=== PATIENT | male | born 1965 | race Hispanic/Latino ===

== ENCOUNTER → 2018-06-25 | Day surgery (SDC) | payer BC ==
[~2018-06-25] MED LIST: AMITIZA24 MCG PO; FENTANYL CITRATE/PF 100MCG/2 ML INJ ONE; GLUCAGON FOR INJ 1 MG VIAL ONE; HYOSCYAMINE SULFATE 0.5 MG/ML INJ ONE; LIPOFEN150 MG PO; MIDAZOLAM HCL 5MG/ML 2ML VIAL ONE; PROPOFOL IV EMULSION 10 MG/ML 50 ML VIAL ONE
[2018-06-25 16:19] VITALS: BP 109/71
--- NOTE | 2018-06-25 18:10 | Operative Report ---
DATE OF PROCEDURE: June 25, 2018 REFERRING PHYSICIAN: Dr. Srinivas Hatch. PROCEDURES PERFORMED: Esophagogastroduodenoscopy with biopsies and a colonoscopy with polypectomy. INDICATIONS FOR ESOPHAGOGASTRODUODENOSCOPY: History of heartburn, indigestion. INDICATIONS FOR COLONOSCOPY: Surveillance colonoscopy, personal history of colon polyps. MEDICATION: Patient was done under MAC. Please see anesthesiologist's note. PROCEDURE: With patient in the left lateral decubitus position, flexible fiberoptic Olympus gastroscope was introduced into the esophagus under direct visualization without any difficulty. There were some erosions noted in distal esophagus. A minute nodule was noted at the GE junction and was biopsied. The scope was then advanced with ease into the stomach. Mucosa overlying the antrum and the body revealed some patchy erythema and low-grade to moderate edema and biopsies were obtained and sent to stain for H. pylori. Pylorus was of normal contour and shape. It was intubated with ease and the scope was advanced all the way to the 2nd portion of the duodenum. There was a prominent fold noted in the proximal 2nd portion that was biopsied. Mucosa overlying the duodenal bulb appeared to be within normal limits. The scope was then withdrawn back into the stomach and retroflexed. Mucosa overlying the fundus appeared to be within normal limits. A minute nodule was noted in the cardia that was biopsied. The scope was then straightened out. It was subsequently withdrawn. Patient tolerated the procedure well. IMPRESSION: 1. Distal erosive esophagitis. 2. Nodule GE junction, biopsied. 3. Nodule cardia, biopsied. 4. Gastritis, biopsied. Biopsy sent to stain for H. pylori. 5. Prominent fold proximal 2nd portion, biopsied. PLAN: Follow up histology. Protonix 40 mg 1 p.o. q.a.m. a.c. PROCEDURE: The patient was then turned around and after adequate lubrication of the anal canal a flexible fiberoptic Olympus colonoscope was inserted into the rectum with ease and advanced all the way to the cecum. Two polyps were snared from the cecum. Two polyps were snared from the ascending colon. One polypectomy site was hemoclipped. Two polyps were hot biopsied and 1 polyp was snared from the transverse colon. Three polyps were snared from the descending colon and 1 polyp was hot biopsied from the rectum. Scope was then retroflexed into the distal rectum and small internal was were noted, none of which were actively bleeding. The scope was then straightened out. Scope was subsequently withdrawn. Patient tolerated the procedure well. IMPRESSION 1. Cecal polyps times 2, snared. 2. Ascending colon polyps times 2, snared, 1 polypectomy site hemoclipped. 3. Transverse colon polyps times 3, 2 hot biopsied and 1 was snared. 4. Descending colon polyps times 3, snared. 5. Rectal polyp times 1, hot biopsied. 6. Internal hemorrhoids, none actively bleeding. PLAN: Follow up histology. Initiate high-fiber, low-fat diet. Initiate high-fiber supplement. The patient will need a followup colonoscopy in 2 years. Job#: [id number] cc:SRINIVAS HATCH MD
== END | disposition home or self-care (01) ==
LOC: OR 09:31
PROVIDERS: ATTEND Internal Medicine Gastroenterology
DX: Z12.11 Encounter for screening for malignant neoplasm of colon (principal); D12.0 Benign neoplasm of cecum; D12.2 Benign neoplasm of ascending colon; D12.3 Benign neoplasm of transverse colon; D12.4 Benign neoplasm of descending colon; D12.8 Benign neoplasm of rectum; K29.70 Gastritis, unspecified, without bleeding; K22.10 Ulcer of esophagus without bleeding; K22.8 Other specified diseases of esophagus; K31.89 Other diseases of stomach and duodenum; K58.9 Irritable bowel syndrome, unspecified; K59.00 Constipation, unspecified; K64.8 Other hemorrhoids; R03.0 Elevated blood-pressure reading, without diagnosis of hypertension; Z01.810 Encounter for preprocedural cardiovascular examination; Z68.36 Body mass index [BMI] 36.0-36.9, adult; Z80.0 Family history of malignant neoplasm of digestive organs
CPT/HCPCS: 43239; 45384; 45385; 93005; J1610; J1980; J2250; 45378

== ENCOUNTER 2024-02-03 09:33 | Inpatient (IN) | payer BC ==
[2024-02-03] VITALS (14 sets, daily range): BP systolic 101–171; BP diastolic 57–93; PULSE 73–104; RESP 20–36; TEMP 98.6–100.4; O2SAT 92–100
[~2024-02-03] VITALS: Ht 170.2 cm; Wt 111.1 kg
[~2024-02-03 09:33] MED LIST changes: -FENTANYL CITRATE/PF 100MCG/2 ML INJ ONE; -GLUCAGON FOR INJ 1 MG VIAL ONE; -HYOSCYAMINE SULFATE 0.5 MG/ML INJ ONE; +LINZESS290 MCG PO; +LISINOPRIL10 MG PO; -MIDAZOLAM HCL 5MG/ML 2ML VIAL ONE; -PROPOFOL IV EMULSION 10 MG/ML 50 ML VIAL ONE; +TRICOR145 MG PO; +ZYRTEC10 M3 PO; +ZYRTEC10 MG PO
[2024-02-03] MEDS ORDERED: IBUPROFEN 400 MG TAB ONE (10:41)
[2024-02-03] MEDS ORDERED: ACETAMINOPHEN 325 MG TAB ONE (10:41)
[2024-02-03 10:42] LABS: INR 1.08; PROTHROMBIN TIME 14.8 seconds (11.9-14.5)
[2024-02-03] MEDS ORDERED: SODIUM CHLORIDE 0.9% 1000ML 1,000 ML ONE ×2 (10:42→11:46)
[2024-02-03 10:43] LABS: PARTIAL THROMBOPLASTIN TIME 35.5 seconds (23.8-35.5)
[2024-02-03 10:48] LABS: BASOPHILS % 0.2 % (0.0-1.0); EOSINOPHILS % 0.1 % (0.0-6.0); HEMATOCRIT 37.7 % (38.2-49.6); HEMOGLOBIN 13.8 g/dL (14.0-18.0); LYMPHOCYTES # (AUTO) 0.8 (1.0-3.2); LYMPHOCYTES % 5.2 % (18.0-39.1); MEAN CORPUSCULAR HEMOGLOBIN 30.7 pg (28-32); MEAN CORPUSCULAR HGB CONC 36.6 g/dL (31-35); MEAN CORPUSCULAR VOLUME 83.8 fL (81-99); MONOCYTES # (AUTO) 1.5 (0.2-0.8); MONOCYTES % 9.7 % (4.4-11.3); NEUTROPHILS # (AUTO) 12.9 (2.1-6.9); NEUTROPHILS % 84.1 % (38.7-80.0); PLATELET COUNT 162 x10e3/uL (140-360); RED CELL DISTRIBUTION WIDTH 14.2 % (11.7-14.4); WHITE BLOOD COUNT 15.29 x10e3/uL (4.8-10.8)
[2024-02-03 10:52] LABS: BILIRUBIN,URINE SMALL (NEGATIVE); CLARITY,URINE CLOUDY (CLEAR); COLOR,URINE YELLOW (YELLOW); GLUCOSE, URINE NEGATIVE (NEGATIVE); KETONES,URINE NEGATIVE (NEGATIVE); LEUKOCYTE ESTERASE ,URINE TRACE (NEGATIVE); NITRITE,URINE NEGATIVE (NEGATIVE); PH,URINE 5.5 (5 - 7); PROTEIN,URINE DIPSTICK 1+ (NEGATIVE); URINE UROBILINOGEN 0.2 mg/dL (0.2 - 1)
[2024-02-03 10:56] LABS: ALBUMIN 4.3 g/dL (3.5-5.0); ALBUMIN/GLOBULIN RATIO 1.3 (0.8-2.0); ANION GAP 15.6 mmol/L (8-16); BILIRUBIN,TOTAL 1.3 mg/dL (0.2-1.2); CALCIUM 9.1 mg/dL (8.4-10.2); CREATININE, SERUM 1.05 mg/dL (0.72-1.25); POTASSIUM 3.6 mmol/L (3.5-5.1); TOTAL PROTEIN 7.6 g/dL (6.5-8.1)
[2024-02-03] MEDS: IBUPROFEN 400 MG TAB PO ONE (11:04)
[2024-02-03] MEDS: ACETAMINOPHEN 325 MG TAB PO ONE (11:04)
[2024-02-03] MEDS: SODIUM CHLORIDE 0.9% 1000ML 1,000 ML IV ONE ×2 (11:05→11:55)
[2024-02-03 11:15] LABS: INFLUENZAE A&B ANTIGEN (RAPID) NEGATIVE (NEGATIVE); RESPIRATORY SYNC. VIRUS NEGATIVE (NEGATIVE)
[2024-02-03 11:18] LABS: BACTERIA,URINE MODERATE /HPF; EPITHELIAL CELLS,URINE RARE /LPF; RBC,URINE 0-5 /HPF (0-5); WBC,URINE (MAN) >50 /HPF (0-5)
[2024-02-03] MEDS ORDERED: CEFTRIAXONE 1 GM VIAL ONE (11:46)
[2024-02-03] MEDS ORDERED: ONDANSETRON HCL INJ 2MG/ML 2ML 2 MG/ML VIAL IV PRN (12:30)
[2024-02-03] MEDS ORDERED: Vancomycin IV 1.25 GM in SODIUM CHLORIDE 0.9% 250ML 250 ML IV SCH (12:30)
[2024-02-03] MEDS: VANCOMYCIN 1.25GM/250ML PREMIX 250 ML IV SCH (14:44)
[2024-02-03] MEDS: ACETAMINOPHEN 325 MG TAB PO PRN (21:04)
[2024-02-03] MEDS: FAMOTIDINE 20 MG/2 ML VIAL IV SCH (21:04)
[2024-02-03] MEDS: SODIUM CHLORIDE 0.9% 1000ML 1,000 ML IV SCH (21:07)
[2024-02-04] VITALS (7 sets, daily range): BP systolic 125–147; BP diastolic 63–84; PULSE 83–104; RESP 18–19; TEMP 98.2–102.1; O2SAT 98–100
[2024-02-04 06:03] LABS: BASOPHILS % 0.4 % (0.0-1.0); EOSINOPHILS % 0.1 % (0.0-6.0); HEMATOCRIT 34.5 % (38.2-49.6); HEMOGLOBIN 11.6 g/dL (14.0-18.0); LYMPHOCYTES # (AUTO) 0.8 (1.0-3.2); LYMPHOCYTES % 8.2 % (18.0-39.1); MEAN CORPUSCULAR HEMOGLOBIN 29.4 pg (28-32); MEAN CORPUSCULAR HGB CONC 33.6 g/dL (31-35); MEAN CORPUSCULAR VOLUME 87.6 fL (81-99); MONOCYTES # (AUTO) 1.1 (0.2-0.8); MONOCYTES % 10.9 % (4.4-11.3); NEUTROPHILS # (AUTO) 7.8 (2.1-6.9); NEUTROPHILS % 79.9 % (38.7-80.0); PLATELET COUNT 152 x10e3/uL (140-360); RED BLOOD COUNT 3.94 x10e6/uL (4.3-5.7); RED CELL DISTRIBUTION WIDTH 13.1 % (11.7-14.4)
[2024-02-04 06:42] LABS: ALBUMIN 3.3 g/dL (3.5-5.0); ALBUMIN/GLOBULIN RATIO 1.1 (0.8-2.0); ANION GAP 12.7 mmol/L (8-16); BILIRUBIN,TOTAL 0.7 mg/dL (0.2-1.2); CALCIUM 8.1 mg/dL (8.4-10.2); CREATININE, SERUM 0.97 mg/dL (0.72-1.25); POTASSIUM 3.7 mmol/L (3.5-5.1); TOTAL PROTEIN 6.3 g/dL (6.5-8.1)
[2024-02-04 06:56] LABS: CREATINE KINASE 147 IU/L (30-200)
[2024-02-04 07:03] LABS: TROPONIN I < 0.001 ng/mL (0-0.300)
[2024-02-04] MEDS: LORATADINE 10 MG TAB PO SCH (09:55)
[2024-02-04] MEDS: LINACLOTIDE 145 MCG CAPSULE PO SCH (09:56)
[2024-02-04] MEDS: FENOFIBRATE 145 MG TAB PO SCH (09:56)
[2024-02-04] MEDS: LISINOPRIL 10 MG TAB PO SCH (09:56)
[2024-02-04 13:52] LABS: CREATINE KINASE 153 IU/L (30-200)
[2024-02-04 14:09] LABS: TROPONIN I < 0.001 ng/mL (0-0.300)
[2024-02-04] MEDS: SALINE 0.65% NAS SOLN 1 SPRAY BTL SCH (16:13)
[2024-02-04] MEDS: BENZONATATE 100 MG CAP PO PRN (20:48)
[2024-02-05] VITALS (7 sets, daily range): BP systolic 112–158; BP diastolic 78–95; PULSE 79–88; RESP 17–20; TEMP 97.9–99.8; O2SAT 96–100
[2024-02-05] MEDS ORDERED: ONDANSETRON HCL 4 MG ORAL DISINTEGRATING TAB PO PRN (14:00)
[2024-02-05] MEDS: FENOFIBRATE 145 MG TAB PO SCH (14:51)
[2024-02-05] MEDS: GUAIFENESIN 200 MG/10 ML UDC PO PRN (16:03)
[2024-02-05] MEDS: METHYLPREDNISOLONE SOD SUCC 40 MG/ML VIAL 1ML IV ONE (16:04)
[2024-02-05] MEDS ORDERED: BENZONATATE 100 MG CAP PO PRN (17:00)
[2024-02-05] MEDS: GUAIFENESIN/CODEINE 5 ML LIQD PO PRN (21:27)
[2024-02-06] VITALS (8 sets, daily range): BP systolic 104–144; BP diastolic 58–88; PULSE 66–89; RESP 18–19; TEMP 97.5–98.7; O2SAT 98–100
[2024-02-07] VITALS: BP 129/86; PULSE 69; RESP 18; TEMP 98.4; O2SAT 100
[2024-02-07 04:00] VITALS: BP 117/80; PULSE 69; RESP 20; TEMP 98.1; O2SAT 100
[2024-02-07 07:44] VITALS: BP 122/78; PULSE 72; RESP 19; TEMP 97.9; O2SAT 100
[2024-02-07 08:00] VITALS: BP 122/78; PULSE 72; RESP 19; TEMP 97.9; O2SAT 100
[2024-02-07 11:27] VITALS: BP 128/84; PULSE 71; RESP 16; TEMP 98.6; O2SAT 99
[2024-02-07] MEDS ORDERED: BENZONATATE100 MG PO (12:58)
[2024-02-07] MEDS ORDERED: LEVOFLOXACIN250 MG PO (12:58)
[2024-02-07] MEDS ORDERED: SALINE NOSE SPR45 ML INH (12:58)
[2024-02-07] MEDS ORDERED: ONDANSETRON ODT4 MG PO (12:58)
== END 2024-02-07 15:20 | disposition home or self-care (01) | DRG 872 ==
LOC: ER 10:05 → ERHOLD 12:33 → MED/SURG3 18:09
PROVIDERS: ADMIT Internal Medicine; ATTEND Internal Medicine
PROC: 3E03329 Introduction of Other Anti-infective into Peripheral Vein, Percutaneous Approach (ICD-10-PCS; principal; 2024-02-03)
PROC: 5A09357 Assistance with Respiratory Ventilation, Less than 24 Consecutive Hours, Continuous Positive Airway Pressure (ICD-10-PCS; 2024-02-03)
DX: A41.59 Other Gram-negative sepsis (principal); N39.0 Urinary tract infection, site not specified; Z16.12 Extended spectrum beta lactamase (ESBL) resistance; Z16.24 Resistance to multiple antibiotics; E87.20 Acidosis, unspecified; E87.1 Hypo-osmolality and hyponatremia; R65.20 Severe sepsis without septic shock; B96.1 Klebsiella pneumoniae [K. pneumoniae] as the cause of diseases classified elsewhere; E86.0 Dehydration; Z11.52 Encounter for screening for COVID-19; K58.9 Irritable bowel syndrome, unspecified; J44.9 Chronic obstructive pulmonary disease, unspecified; I10 Essential (primary) hypertension; E78.5 Hyperlipidemia, unspecified; G47.33 Obstructive sleep apnea (adult) (pediatric); Z79.899 Other long term (current) drug therapy
CPT/HCPCS: 36415; 71046; 76770; 80053; 80202; 81001; 82550; 83605; 84484; 85025; 85610; 85730; 87040; 87086; 87186; 87400; 87420; 99284; J0696; J2185; J2919; J7030; U0002